=== PATIENT | female | born 1980 | race Two or more races ===

== ENCOUNTER 2018-12-05 03:44 | Emergency (ER) | payer OTHER ==
[~2018-12-05] VITALS: Ht 160 cm; Wt 103.0 kg
--- NOTE | 2018-12-05 04:15 | NUR ---
BIBS FOR C/O ANXIETY AND WEAKNESS. PT REPORTED HAS NOT BEEN ABLE TO EAT AND SLEEP WELL DUE TO FAMILY FAMILY ISSUE ( HER MOM IS HOSPITALIZED). PT WAS PLACED ON A MONITOR .. VSS. WILL CONT TO MONITOR ,
[2018-12-05] MEDS ORDERED: ONDANSETRON 4 MG TAB.RAPDIS ONE (04:26)
[2018-12-05] MEDS ORDERED: LORAZEPAM 1 MG TABLET ONE (04:26)
[2018-12-05] MEDS ORDERED: LORAZEPAM 1 MG TABLET PO ONE (04:30)
[2018-12-05] MEDS ORDERED: ONDANSETRON 4 MG TAB.RAPDIS SL ONE (04:30)
--- NOTE | 2018-12-05 04:58 | NUR ---
Patient discharged to home in stable condition. Written and verbal after care instructions given. Patient verbalizes understanding of instruction.
[2018-12-05 04:59] VITALS: BP 129/78
== END 2018-12-05 05:00 | disposition home or self-care (01) ==
LOC: ER 03:44
DX: F41.9 Anxiety disorder, unspecified (principal); F43.9 Reaction to severe stress, unspecified; E03.9 Hypothyroidism, unspecified; F32.9 Major depressive disorder, single episode, unspecified; E78.5 Hyperlipidemia, unspecified; R94.31 Abnormal electrocardiogram [ECG] [EKG]; Z88.0 Allergy status to penicillin
CPT/HCPCS: 93005; 99284; Q0162